=== PATIENT | female | born 1965 | race Caucasian/White ===

== ENCOUNTER 2020-09-06 07:08 | Outpatient (NON) | payer OTHER, SELFPAY ==
[2020-09-07 13:35] LABS: SARS-CoV-2 RNA PCR Negative
== END 2020-09-06 07:09 ==
PROVIDERS: PCP Family Medicine; Visit Provider Nurse Practitioner Family
DX: Z20.828 Contact with and (suspected) exposure to other viral communicable diseases (principal); R68.89 Other general symptoms and signs
CPT/HCPCS: 87635; C9803; U0003